=== PATIENT | male | born 1960 | race Caucasian/White ===

== ENCOUNTER → 2017-09-07 | Outpatient (CLI) | payer BC ==
[~2017-09-07] MED LIST: ASPIR 8181 MG PO; DIABETA5 MG; FAMOTIDINE20 MG PO; FISH OIL 1,0001 EAC1 PO; FISH OIL300 MG; FUROSEMIDE40 MG PO; GLUCOSAMINE CH1 EAC2 PO; GLYBURIDE5 MG PO; LEVAQUIN500 MG PO; METFORMIN HCL500 MG PO; METOPROLOL SUCC50 MG PO; MULTI-VITAMIN1 EACH PO; NIACIN500 M2 PO; NIFEDIPINE ER30 M1 PO; NITROFURANTOIN100 MG; PENICILLIN V P500 MG PO; PIOGLITAZONE HC30 MG PO; PLAVIX75 MG PO; QUINAPRIL HCL20 MG PO; SIMVASTATIN40 MG PO; SPIRONOLACTONE25 MG PO; VITAMIN C1000 MG PO; ZYRTEC10 M3 PO
--- NOTE | 2017-09-07 09:43 | Diagnostic Imaging Report ---
PROCEDURE:X-RAY ABDOMEN - KUB COMPARISON:None. INDICATIONS:CALCULUS OF KIDNEY FINDINGS: 5-6 mm calculi project over the lower pole of the right renal shadow and the interpolar left renal shadow, corresponding to calculi identified on CT abdomen and pelvis 01/20/2017. No additional calcifications project over the renal shadows or expected ureteral courses. Left hemipelvic phleboliths. Bowel gas pattern is nonobstructive. No organomegaly. Regional skeletal structures are intact. Transitional lumbosacral anatomy. CONCLUSION: Bilateral nephrolithiasis seen to better advantage on comparison CT 01/20/2017. Dictated by: Aroldo Todd M.D. on 09/07/2017 at 9:45 Electronically approved by: Aroldo Todd M.D. on 09/07/2017 at 9:45
== END ==
LOC: RAD 08:41
PROVIDERS: ATTEND Urology
DX: N20.0 Calculus of kidney (principal)
CPT/HCPCS: 74018

== ENCOUNTER → 2018-01-20 | Outpatient (CLI) | payer BC ==
--- NOTE | 2018-01-20 15:16 | Diagnostic Imaging Report ---
EXAM: Abdomen 3 Views INDICATION: \[id number] \S\1400 \S\CALCULUS OF KIDNEY COMPARISON: KUB 09/07/2017 and 05/30/2017 FINDINGS: Mild amount of stool in the colon. No dilated loops of small bowel. 3 mm calcification overlying the left renal shadow. Small calcification within the pelvis adjacent to the wall of the urinary bladder. No abnormal soft tissue masses. Mild degenerative changes in the lumbar spine and pelvis. IMPRESSION: 1. Small calcification overlying the left kidney is unchanged and suggestive of nephrolithiasis. 2. Indeterminate calcification in the left pelvis may represent stone at the distal left ureter versus phlebolith. This is unchanged. Signed by: Dr. Joanne Rene M.D. on 01/20/2018 3:13 PM
== END ==
LOC: RAD 13:35
PROVIDERS: ATTEND Urology
DX: N20.0 Calculus of kidney (principal)
CPT/HCPCS: 74018

== ENCOUNTER → 2018-11-20 | Outpatient (CLI) | payer BC ==
[~2018-11-20] MED LIST changes: +ASPIRIN81 MG PO; +ECONAZOLE NITRA15 GM TP; +FLOMAX0.4 MG PO; +FLUTICASONE PRO16 GM INH; +VICTOZA 2-0.6 MG/0.1 IJ; +VITAMIN D31000 UNI2; +VITAMIN D32000 UNIT PO; +ZYRTEC10 M3 PEG
--- NOTE | 2018-11-20 17:04 | Diagnostic Imaging Report ---
Exam: KUB - 2 views Clinical History: Renal calculi Comparison: KUB of 01/20/2018 and 09/07/2017 Findings: 5 mm left renal calculus appears slightly increased in size from 01/20/2018. Likely 3 mm right lower pole renal calculi. Nonobstructive bowel gas pattern. No free air. Mild degenerative changes of both hip joints. Phleboliths in the pelvis. Impression: Left renal calculus measures 5 mm, slightly increased from 01/20/2018. Likely 3 mm right lower pole renal calculi. Signed by: Bobbi Johnson MD on 11/20/2018 5:01 PM
== END ==
LOC: RAD 15:47
PROVIDERS: ATTEND Urology
DX: N20.0 Calculus of kidney (principal)
CPT/HCPCS: 74018

== ENCOUNTER → 2019-01-05 | Day surgery (SDC) | payer BC ==
[2019-01-02 15:09] LABS: BASOPHILS # (AUTO) 0.1 (0.0-0.1); BASOPHILS % 1.1 % (0.0-1.0); EOSINOPHILS # (AUTO) 0.6 (0.0-0.4); EOSINOPHILS % 9.6 % (0.0-6.0); HEMATOCRIT 37.9 % (38.2-49.6); HEMOGLOBIN 13.2 g/dL (14.0-18.0); LYMPHOCYTES # (AUTO) 1.9 (1.0-3.2); LYMPHOCYTES % 29.4 % (18.0-39.1); MEAN CORPUSCULAR HEMOGLOBIN 30.7 pg (28-32); MEAN CORPUSCULAR HGB CONC 34.8 g/dL (31-35); MEAN CORPUSCULAR VOLUME 88.1 fL (81-99); MONOCYTES # (AUTO) 0.6 (0.2-0.8); MONOCYTES % 8.8 % (4.4-11.3); NEUTROPHILS # (AUTO) 3.2 (2.1-6.9); NEUTROPHILS % 50.6 % (38.7-80.0); PLATELET COUNT 191 x10e3/uL (140-360); RED CELL DISTRIBUTION WIDTH 12.9 % (11.7-14.4)
--- NOTE | 2019-01-02 15:23 | Diagnostic Imaging Report ---
EXAMINATION: CHEST 2 VIEWS INDICATION: Pre-operative COMPARISON: None FINDINGS: LINES/TUBES:None LUNGS:The lungs are well-inflated. No focal consolidation or pulmonary edema. PLEURA:No pleural effusion or pneumothorax. MEDIASTINUM:The cardiomediastinal silhouette appears normal in size and shape. BONES/SOFT TISSUES:No acute osseous injury. Mild degenerative changes of the visualized spine. ABDOMEN:No free air under the diaphragm. IMPRESSION: No focal pneumonia or pulmonary edema. Signed by: Bobbi Johnson MD on 01/02/2019 3:20 PM
[~2019-01-05] MED LIST changes: +AZO STANDARD95 MG PO; +B&O 60MG R/S 60 MG SUPP PR ONE; +CEFDINIR300 MG PO; +CEFTRIAXONE SOD 1 GM/NS 50 ML 100 ML IV ONE; +DEXAMETHASONE SOD PHOS INJ 4 MG/ML VIAL ONE; +FENTANYL CITRATE/PF 100MCG/2 ML INJ ONE; +GENTAMICIN 80MG/NS 100 ML 200 ML IV ONE; +IOPAMIDOL 300MG/ML 50ML INFUS..BTL IV ONE; +LIDOCAINE HCL 2% LOCAL INJ 5 ML SDV VIAL INJ ONE; +MIDAZOLAM HCL 2 MG/2 ML VIAL ONE; +ONDANSETRON HCL INJ 2MG/ML 2ML 2 MG/ML VIAL ONE; +PROPOFOL IV EMULSION 10 MG/ML 20 ML VIAL ONE; +SEVOFLURANE INHAL SOLN 250 ML PEN BTL ONE; -ZYRTEC10 M3 PEG
--- OUTSIDE RECORDS SUMMARY | 2019-01-05 08:48 | XMS REPORT ---
Author Author [facility] Address Unknown Phone Unavailable Care Team Providers Care Research Pharmacist Name Role Phone LATOSHA AYON Unavailable Unavailable Problems This patient has no known problems. Allergies, Adverse Reactions, Alerts This patient has no known allergies or adverse reactions. Medications This patient has no known medications. Results Test Description Test Time Test Comments Text Results Atomic Results Result Comments CHEST 2 VIEWS 2019-01-02 15:19:00 [place] [id number] Patient Name: KATHERIN HURLEY MR #: [id number] : 1960 Age/Sex: 58/M Req #: [id number] Adm Physician: Ordered by: LATOSHA AYON MD Report #: [id number] Location: OR Room/Bed: Procedure: [id number] DX/CHEST 2 VIEWS Exam Date: 01/02/19 Exam Time: 1444 REPORT STATUS: Signed EXAMINATION: CHEST 2 VIEWS INDICATION: Pre-operative COMPARISON: None FINDINGS: LINES/TUBES:None LUNGS:The lungs are well-inflated. No focal consolidation or pulmonary edema. PLEURA:No pleural effusion or pneumothorax. MEDIASTINUM:The cardiomediastinal silhouette appears normal in size and shape. BONES/SOFT TISSUES:No acute osseous injury. Mild degenerative changes of the visualized spine. ABDOMEN:No free air under the diaphragm. IMPRESSION: No focal pneumonia or pulmonary edema. Signed by: Ibrahima Sabillon MD on 01/02/2019 3:20 PM Dictated By: IBRAHIMA SABILLON MD 19 Transcribed By: BURAK on 01/02/191519 COPY TO: LATOSHA AYON MD ABDOMEN-1VIEW (KUB) 2018-11-20 16:59:00 [place] [id number] Patient Name: KATHERIN HURLEY MR #: [id number] : 1960 Age/Sex: 58/M Req #: [id number] Adm Physician: Ordered by: LATOSHA AYON MD Report #: [id number] Location: [facility] Room/Bed: Procedure: [id number] DX/ABDOMEN-1VIEW (KUB) Exam Date: Exam Time: REPORT STATUS: Signed Exam: KUB - 2 views Clinical History: Renal calculi Compari son: KUB of 01/20/2018 and 09/07/2017 Findings: 5 mm left renal calculus appears slightly increased in size from 01/20/2018. Likely 3 mm right lower pole renal calculi. Nonobstructive bowel gas pattern. No free air. Mild degenerative changes of both hip joints. Phleboliths in the pelvis. Impression: Left renal calculus measures 5 mm, slightly increased from 01/20/2018. Likely 3 mm right lower pole renal calculi. Signed by: Ibrahima Sabillon MD on 11/20/2018 5:01 PM Dictated By: IBRAHIMA SABILLON MD 00 Transcribed By: Dora BROWN on 11/20/181700 COPY TO: LATOSHA AYON MD ABDOMEN-1VIEW (KUB) 2018-01-20 15:05:00 [place] [id number] Patient Name: KATHERIN HURLEY MR #: [id number] : 1960 Age/Sex: 57/M Req #: [id number] Adm Physician: Ordered by: LATOSHA AYON MD Report #: [id number] Location: [facility] Room/Bed: Procedure: [id number] DX/ABDOMEN-1VIEW (KUB) Exam Date: 01/20/18 Exam Time: 1400 REPORT STATUS: Signed EXAM: Abdomen 3 Views INDICATION: COMPARISON: KUB 09/07/2017 and 05/30/2017 FINDINGS: Mild amount of stool in the colon. No dilated loops of small bowel. 3 mm calcification overlying the left renal shadow. Small calcification within the pelvis adjacent to the wall of the urinary bladder. No abnormal soft tissue masses. Mild degenerative changes in the lumbar spine and pelvis. IMPRESSION: 1. Small calcification overlying the left kidney is unchanged and suggestive of nephrolithiasis. 2. Indeterminate calcification in the left pelvis may represent stone at the distal left ureter versus phlebolith. This is unchanged. Signed by: Dr. Maddison Wilson M.D. on 01/20/2018 3:13 PM Dictated By: MADDISON WILSON MD 12 Transcribed By: BURAK on 01/20/181512 COPY TO: LATOSHA AYON MD ABDOMEN-1VIEW (KUB) [place] [id number] Patient Name: KATHERIN HURLEY MR #: [id number] : 1960 Age/Sex: 57/M Req #: [id number] Adm Physician: Ordered by: LATOSHA AYON MD Report #: [id number] Location: [facility] Room/Bed: Procedure: [id number] DX/ABDOMEN-1VIEW (KUB) Exam Date: 09/07/17 Exam Time: 840 REPORT STATUS: Signed PROCEDURE: X-RAY ABDOMEN - KUB COMPARISON: None. INDICATIONS: CALCULUS OF KIDNEY FINDINGS: 5-6 mm calculi project over the lower pole of the right renal shadow and the interpolar left renal shadow, corresponding to calculi identified on CT abdomen and pelvis 01/20/2017. No additional calcifications project over the renal shadows or expected ureteral courses. Left hemipelvic phleboliths. Bowel gas pattern is nonobstructive. No organomegaly. Regional skeletal structures are intact. Transitional lumbosacral anatomy. CONCLUSION: Bilateral nephrolithiasis seen to better advantage on comparison CT 01/20/2017. Dictated by: Jah Badillo M.D. on 09/07/2017 at 9:45 Electronically approved by: Jah Badillo M.D. on 09/07/2017 at 9:45 Dictated By: JAH BADILLO MD Transcribed By: LARA on 09/07/1745 COPY TO: LATOSHA AYON MD CT ABDOMEN/PELVIS [place] [id number] Patient Name: KATHERIN HURLEY MR #: [id number] : 1960 Age/Sex: 56/M Req #: [id number] Adm Physician: Ordered by: LATOSHA AYON MD Report #: [id number] Location: CT Room/Bed: Procedure: [id number] CT/CT ABDOMEN/PELVIS WOW Exam Date: 01/20/17 Exam Time: 1100 REPORT STATUS: Signed PROCEDURE: CT ABDOMEN T PELVIS W/WO CONTRAST TECHNIQUE: The abdomen and pelvis were scanned utilizing a multidetector helical scanner from the diaphragm to the lesser trochanter before and after the IV administration of 100 cc of Isovue 370 and the oral administration of water. Precontrast, arterial, venous and delayed phases were obtained as part of a renal mass protocol. Coronal and sagittal multiplanar reformations were obtained. COMPARISON: None. INDICATIONS: CYST OF KIDNEY, CALCULUS OF KIDNEY FINDINGS: LOWER THORAX: Lung bases are clear. Atherosclerotic calcification of the coronary arteries.. HEPATOBILIARY: Mild hepatomegaly, measuring 16.8 cm in the right midclavicular line. Diffuse hepatic steatosis. No focal hepatic lesions. No biliary ductal dilation. Gallbladder is unremarkable. SPLEEN: No splenomegaly. PANCREAS: No focal masses or ductal dilatation. ADRENALS: No adrenal nodules. KIDNEYS/URETERS: Right: Punctate nonobstructing calculi in the interpolar region (series 4, image 48 and, series 3, image 79). 3-4 mm nonobstructing calculus in the inferior pole (series 3, image 88). No other renal or any ureteral calculi. No hydronephrosis, hydroureter, or evidence of obstruction. Several cystic lesions are noted in the right kidney: * 5.6 x 4.2 x 4.5 cm fluid density nonenhancing mostly exophytic simple cyst in the superior pole (series 4, image 104). * 6.2 x 6.2 x 6.6 cm mildly hyperdense, nonenhancing (23, 26, 26 and 26 HU on precontrast, arterial, venous and delayed phases), mostly exophytic cyst in the mid and inferior aspect (series 4, image 120). * 1.8 x 1.4 x 1.4 cm partly exophytic nonenhancing simple cyst in the inferior pole (series 4, image 56). * 1.4 x 1.5 x 1.5 cm nonenhancing simple cyst, in the posteromedial interpolar region (series 4, images 110) No solid enhancing masses. No significant perinephric stranding. Left: 6 cm nonobstructing calculus in the mid to inferior aspect (series 3, image 70). No other renal or any ureteral calculi. No hydronephrosis or obstruction. Several cystic lesions are noted in the left kidney: * 1.5 x 1.5 x 1.5 cm mildly hyperdense, nonenhancing, mostly exophytic cyst in the superior pole (series 4, image 96), likely representing a mildly proteinaceous cyst. * Adjacent 2.1 x 1.9 x 2.4 cm fluid density nonenhancing simple cyst (series 4, image 96). * 2.4 x 2.8 x 2.9 cm mildly hyperdense, mostly exophytic, nonenhancing cyst in the mid aspect (series 4, image 101), likely representing a proteinaceous cyst. * 3.3 x 3.0 x 3.2 cm mostly exophytic hyperdense nonenhancing cyst in the mid to inferior aspect, consistent with a hemorrhagic cyst. * 1.5 x 1.6 x 1.8 cm fluid density partially exophytic, nonenhancing simple cyst in the inferior pole (series 4, image 116). * Subcentimeter hypodensities in the interpolar region (series 4, image 104, and inferior pole (series 4, image 116), which are too small to characterize. No solid enhancing lesions. No significant perinephric stranding. There is good contrast opacification of bilateral renal collecting system, renal pelves, and mid and distal portions of both ureters. No filling defects, strictures, or extrinsic compressions in the opacified portions. PELVIC ORGANS/BLADDER: Bladder shows no focal lesion or wall thickening. PERITONEUM / RETROPERITONEUM: No free air or fluid. LYMPH NODES: Mildly enlarged gastrohepatic ligament (series 3, images 36), and driss hepatis (series 3, image 42) lymph nodes, which measure approximately 1.3 and 1.5 cm in short axis, respectively. No other adenopathy. VESSELS: Celiac trunk, superior and inferior mesenteric, and bilateral renal arteries are patent. Portal, superior mesenteric, and splenic veins are patent. Mild atherosclerotic calcification of the abdominal aorta and iliac vessels. GI TRACT: Visualized bowel shows no dilation or obstruction. BONES AND SOFT TISSUES: No acute bony abnormalities. Degenerative disc changes in the lower thoracic and lumbosacral spine. IMPRESSION: 1. Bilateral nonobstructing renal calculi, as described. No ureteral or bladder calculi, hydronephrosis, or obstruction. 2. Bilateral simple and proteinaceous cysts. A hemorrhagic cyst is noted in the mid to inferior aspect of the left kidney. 3. No solid enhancing lesions. No filling defects in the opacified portions of the genitourinary tract. 4. Mild hepatomegaly with diffuse fatty infiltration. 5. Mildly enlarged gastrohepatic ligament and driss hepatis nodes, which are nonspecific and may be reactive. No other adenopathy. Carisa Taylor M.D. Dictated by: Carisa Taylor M.D. on 01/20/2017 at 14:17 Electronically approved by: Carisa Taylor M.D. on 01/20/2017 at 19:34 Dictated By: CARISA TAYLOR MD 33 Transcribed By: LARA on 01/20/171933 COPY TO: LATOSHA AYON MD
--- OUTSIDE RECORDS SUMMARY | 2019-01-05 08:48 | XMS REPORT | Clinical Summary ---
Author Author [facility] Organization [facility] Address Unknown Phone Unavailable Care Team Providers Care Slider Assembler Name Role Phone Kobe Díaz MD PCP Allergies No Known Allergies Medications End Date Status Medication Sig Dispensed Refills Start Date Active NIFEdipine XL (PROCARDIA TAKE ONE 2 XL) 90 MG 24 hr tablet TABLET PO D 8 ON EMPTY STOMACH Active quinapril (ACCUPRIL) 40 Take 40 mg by 3 MG tablet mouth 2 (two) 9 times a day. Active spironolactone Take 50 mg by 3 (ALDACTONE) 50 MG tablet mouth daily. 9 Active furosemide (LASIX) 40 mg Take 40 mg by 2 tablet mouth daily. 9 Active simvastatin (ZOCOR) 40 MG Take 40 mg by 3 tablet mouth every 9 evening. Active metFORMIN (GLUCOPHAGE) Take 1,000 mg 2 1,000 mg tablet by mouth 2 9 (two) times a day. Active metoprolol succinate XL Take 100 mg 0 (TOPROL-XL) 100 mg 24 hr by mouth tablet daily. Active tamsulosin (FLOMAX) 0.4 Take 0.4 mg 0 mg capsule by mouth every evening. Active aspirin (ECOTRIN) 81 MG Take 81 mg by 0 enteric coated tablet mouth daily. Active omega 2-dyf-rao-fish oil Take by 0 (FISH OIL) 1,000 mg (120 mouth. mg-180 mg) capsule Active therapeutic multivitamin Take 1 tablet 0 (THERAGRAN) tablet by mouth daily. Active glucosamine sulfate Take by 0 (GLUCOSAMINE ORAL) mouth. Active cholecalciferol, vitamin Take by 0 D3, (VITAMIN D3 ORAL) mouth. Active ascorbic acid, vitamin C, Take 1,000 mg 0 (vitamin C) 1000 MG by mouth tablet daily. Active cetirizine (ZyrTEC) 10 MG Take 10 mg by 0 tablet mouth nightly. Active famotidine (PEPCID) 20 MG Take 20 mg by 0 tablet mouth 2 (two) times a day. Active acetaminophen (TYLENOL) Take 1,300 mg 0 650 MG 8 hr tablet by mouth every 8 (eight) hours as needed for mild pain. Active VICTOZA 3-HOWARD 0.6 mg/0.1 INJECT 1.8 MG 3 mL (18 mg/3 mL) pen SUBCUTANEOUS 9 injector DAILY 08/18/2018 Discontinued pioglitazone (ACTOS) 30 Take 30 mg by 3 MG tablet mouth daily. 8 07/03/2018 dexamethasone (TAPERDEX) Use as 21 tablet 0 1.5 mg (21 tabs) directed 9 tablets,dose pack 08/18/2018 Discontinued diclofenac (VOLTAREN) 75 Take 1 tablet 60 tablet 2 MG EC tablet (75 mg total) 9 by mouth 2 (two) times a day for 30 days. Active Problems Not on file Encounters Care Team Description Date Type Specialty Ursula Marley PA-C Spondylolisthesis at L1-L2 level (Primary Dx); Bilateral stenosis of lateral recess of lumbar spine; Lumbosacral radiculitis; Acute right-sided low back pain with right-sided sciatica 08/25/2018 Office Visit Orthopedic Surgery Shade Solis MD Spondylolisthesis at L1-L2 level; Lumbosacral radiculitis; Degeneration of lumbar intervertebral disc 08/18/2018 Hospital Radiology Encounter Shade Solis MD Pre-op testing (Primary Dx) 08/18/2018 Pre-Admit Pre-Admission Testing Testing Appointment Km Sanchez Spondylolisthesis at L1-L2 level (Primary Dx); Lumbosacral radiculitis; Degeneration of lumbar intervertebral disc 08/16/2018 Orders Only Orthopedic Surgery Natalya Vera MA Acute right-sided low back pain with right-sided sciatica (Primary Dx); Right leg weakness; Lumbar radiculopathy 08/14/2018 Orders Only Orthopedic Surgery Shade Solis MD Acute right-sided low back pain with right-sided sciatica; Right leg weakness; Lumbar radiculopathy 08/07/2018 Hospital Radiology Encounter Ursula Marley PA-C Acute right-sided low back pain with right-sided sciatica (Primary Dx); Right leg weakness; Lumbar radiculopathy 07/24/2018 Office Visit Orthopedic Surgery Ashley Herrera 06/28/2018 Telephone Physical Therapy Ursula Marley PA-C Lumbar spine pain (Primary Dx); Degeneration of lumbar intervertebral disc; Lumbosacral radiculitis 06/27/2018 Office Visit Orthopedic Surgery after 01/04/2018 Family History Medical History Relation Name Comments Diabetes Brother Heart disease Brother Hypertension Brother Hypertension Father Prostate cancer Father Brain cancer Mother Diabetes Mother Hypertension Mother Relation Name Status Comments Brother Father Mother Social History Date Tobacco Use Types Packs/Day Years Used Quit: 2003 Former Smoker Cigarettes 2 Smokeless Tobacco: Never Used Tobacco Cessation: Counseling Given: No Drinks/Week oz/Week Comments Alcohol Use 1 Standard drinks or equivalent 1.0 Yes Sex Assigned at Date Recorded Not on file Industry Job Start Date Occupation Not on file Not on file Not on file Travel End Travel History Travel Start No recent travel history available. Last Filed Vital Signs Reading Time Taken Comments Vital Sign 162/71 08/25/2018 11:21 AM CDT Blood Pressure 109 08/25/2018 11:21 AM CDT Pulse 36.6 C (97.8 F) 08/18/2018 2:42 PM CDT Temperature - - Respiratory Rate 97% 08/18/2018 2:42 PM CDT Oxygen Saturation - - Inhaled Oxygen Concentration 169 kg (373 lb 1 oz) 08/18/2018 2:42 PM CDT Weight 181.6 cm (5' 11.5") 08/18/2018 2:42 PM CDT Height 51.31 08/18/2018 2:42 PM CDT Body Mass Index Plan of Treatment Health Maintenance Due Date Last Done Comments COLONOSCOPY SCREENING 2009 SHINGLES VACCINES (#1) 2009 INFLUENZA VACCINE 11/09/2018 Procedures Comments Procedure Name Priority Date/Time Associated Diagnosis MRI LUMBAR SPINE WO Routine 08/18/2018 Spondylolisthesis at CONTRAST 5:05 PM CDT L1-L2 level Lumbosacral radiculitis Degeneration of lumbar intervertebral disc ECG PRE/POST OP Routine 08/18/2018 Pre-op testing 3:44 PM CDT ESTIMATED GFR Routine 08/18/2018 3:25 PM CDT HEMOGLOBIN A1C Routine 08/18/2018 Pre-op testing 3:25 PM CDT BASIC METABOLIC PANEL Routine 08/18/2018 Pre-op testing 3:25 PM CDT XR LUMBAR SPINE 2 OR 3 VW Routine 06/27/2018 Lumbar spine pain 11:44 AM CDT after 01/04/2018 Results * MRI Lumbar Spine Wo Contrast (08/18/2018 5:05 PM CDT) Specimen Narrative Performed At [facility] EXAMINATION:MRI LUMBAR SPINE WO CONTRAST CLINICAL HISTORY:M43.16 Spondylolisthesislumbar region, M54.17 Radiculopathylumbosacral region, LUMBAR MRI WITHOUT CONTRAST - BACK PAIN COMPARISON:June 27, 2018 FINDINGS: Lowermost functional disc space is assumed to be L5-S1. Mild retrolisthesis at L3-4. Multilevel disc space narrowing and endplate degenerative changes. No suspicious focal bone marrow lesions Visualized spinal cord is normal in appearance. L1-2: No canal or foraminal narrowing. L2-3: Posterior disc bulge. No canal or foraminal narrowing. L3-4: Posterior disc bulge, bilateral facet arthropathy, ligament flavum thickening and epidural lipomatosis causes severe narrowing of the canal and mild left and moderate right foraminal narrowing. L4-5: Posterior disc bulge, superimposed posterior central disc protrusion, bilateral facet arthropathy and ligament flavum thickening causes severe narrowing of the canal and mild narrowing of the foramina. L5-S1: Posterior disc bulge, superimposed posterior disc protrusion, facet arthropathy and ligamentum flavum thickening causes moderate foraminal narrowing on the left. There is moderate circumferential narrowing of the subarachnoid space mostly due to epidural lipomatosis. IMPRESSION: Multilevel degenerative changes worst at L3-4 and L4-5. [facility]-[id number] Procedure Note Hm Interface, Radiology Results Incoming - 08/18/2018 5:21 PM CDT EXAMINATION: MRI LUMBAR SPINE WO CONTRAST CLINICAL HISTORY: M43.16 Spondylolisthesis lumbar region, M54.17 Radiculopathy lumbosacral region, LUMBAR MRI WITHOUT CONTRAST - BACK PAIN COMPARISON: June 27, 2018 FINDINGS: Lowermost functional disc space is assumed to be L5-S1. Mild retrolisthesis at L3-4. Multilevel disc space narrowing and endplate degenerative changes. No suspicious focal bone marrow lesions Visualized spinal cord is normal in appearance. L1-2: No canal or foraminal narrowing. L2-3: Posterior disc bulge. No canal or foraminal narrowing. L3-4: Posterior disc bulge, bilateral facet arthropathy, ligament flavum thickening and epidural lipomatosis causes severe narrowing of the canal and mild left and moderate right foraminal narrowing. L4-5: Posterior disc bulge, superimposed posterior central disc protrusion, bilateral facet arthropathy and ligament flavum thickening causes severe narrowing of the canal and mild narrowing of the foramina. L5-S1: Posterior disc bulge, superimposed posterior disc protrusion, facet arthropathy and ligamentum flavum thickening causes moderate foraminal narrowing on the left. There is moderate circumferential narrowing of the subarachnoid space mostly due to epidural lipomatosis. IMPRESSION: Multilevel degenerative changes worst at L3-4 and L4-5. [facility]-[id number] Performing Organization Address City/[facility] Hospital[facility] Phone Number [facility] [address] [place] [address] * ECG Pre/Post Op (08/18/2018 3:44 PM CDT) Pathologist [facility] Ventricular 77 [facility] MUSE rate Atrial rate 77 [facility] MO interval 202 [facility] QRSD interval 106 [facility] QT interval 396 [facility] QTC interval 448 [facility] P axis 1 42 [facility] QRS axis 1 29 [facility] T wave axis 39 [facility] EKG impression Normal sinus rhythm-Normal [facility] MUSE ECG-No previous ECGs available- Specimen Narrative Performed At Performing Organization Address [facility] Hospitalcout Phone Number [facility] [address] [place] [address] * Estimated GFR (08/18/2018 3:25 PM CDT) Pathologist [facility] Estimated GFR >=90 mL/min/1.73 m2 [place] Comment: [facility] rpretation G1 >=90 Normal or high G2 60-89Mildly decreased [id number] Mildly to moderately decreased [id number] Moderately to severely decreased G4 15-29Severely decreased G5 <15Kidney failure The eGFR was calculated using the Chronic Kidney Disease Epidemiology Collaboration (CKD-EPI) equation. Interpretation is based on recommendations of the National Kidney Foundation-Kidney Disease Outcomes Quality Initiative (NKF-KDOQI) published in 2014. Specimen Plasma specimen Performing Organization Address City/State/Zipcode Phone Number [facility] [place] [address] PATHOLOGY AND GENOMIC MEDICINE [address] * Hemoglobin A1c (08/18/2018 3:25 PM CDT) Hemoglobin A1C 6.6 (H) 4.0 - 5.6 % [place] Comment: [facility] HbA1c cutoffs for diagnosing HOSPITAL diabetes: 4.0% - 5.6%=normal 5.7% - 6.4%=increased risk for diabetes (prediabetes) >=6.5%=diabetes Goals for glycemic control (ADA 2016) < 7.0%Target for non adults with diabetes. More or less stringent targets may be appropriate for individual patients. <7.5% Target for Children and adolescents with type 1 diabetes. Specimen Blood Performing Organization Address [facility] Hospitalcode Phone Number [facility] [place] [address] PATHOLOGY AND [facility] MEDICINE [address] * Basic metabolic panel (08/18/2018 3:25 PM CDT) Sodium 142 135 - 148 mEq/L [facility] Potassium 4.0 3.5 - 5.0 mEq/L [facility] Chloride 100 98 - 112 mEq/L [facility] CO2 27 24 - 31 mEq/L [facility] Anion gap 15@ANIO 7 - 15 mEq/L [facility] BUN 18 6 - 20 mg/dL [facility] Creatinine 0.87 0.70 - 1.20 mg/dL [facility] Glucose 113 (H) 65 - 99 mg/dL [facility] Calcium 9.1 8.3 - 10.2 mg/dL [facility] Specimen Plasma specimen Performing Organization Address City/[facility] Phone Number [facility] DEPARTMENT [address] [address] PATHOLOGY AND GENOMIC MEDICINE [place] [facility] [address] [place] [address] HOSPITAL * XR Lumbar Spine 2 Or 3 Vw (06/27/2018 11:44 AM CDT) Specimen Narrative Performed At [facility] 2 view AP lateral lumbar x-rays were taken in the office today.The x-rays show free-flowing anterior ossified formation across the thoracolumbar junction and some osteophytes present at L4-5 with narrowing of the disc space at L4-5 and L5-S1.Spondylosis in the facets seen at L4-5 with posterior osteophyte formation at the L4-5 segment as well. Performing Organization Address City/State/Zipcode Phone Number [facility] [address] [place] [address] after 01/04/2018 Insurance Type Payer Benefit Subscriber ID Effective Phone Address Plan / Dates Group PPO BCBS BCBS xxxxxxxxxxxx [id number] CHOICE resent PPO/JUAN SALAMANCA PPO Advance Directives For more information, please contact: [phone] Patient Net Application Architect Explanation Type Date Recorded Advance Directives, Living Will and Medical Power of Predatory Game Hunter
--- NOTE | 2019-01-05 10:44 | Diagnostic Imaging Report ---
Abdomen, 1 view. History: Renal calculi. Comparison: 11/20/2018. Findings: 4 to 5 mm calcifications are projected over both kidneys, unchanged in position. Air is scattered throughout nondilated small and large bowel. There are no masses. The osseous structures are intact. IMPRESSION: Non-specific bowel gas pattern. Small bilateral renal calculi without significant change. Signed by: Zachary Lara on 01/05/2019 10:41 AM
[2019-01-05 13:20] VITALS: BP 118/65
--- NOTE | 2019-02-12 00:31 | Operative Report ---
DATE OF PROCEDURE: 01/05/2019 SURGEON: Hilario Wilson MD PREOPERATIVE DIAGNOSES: 1. Nephrolithiasis. 2. Urinary tract infections. POSTOPERATIVE DIAGNOSES: 1. Nephrolithiasis. 2. Urinary tract infections. 3. Left ureteral stricture. 4. Left hydronephrosis due to stricture. 5. Urethral stricture disease. OPERATION PERFORMED: 1. Cystourethroscopy with calibration and dilation of urethral stricture (separate procedure performed for the diagnosis of stricture). 2. Cystourethroscopy with bilateral ureteral catheterization and retrograde ureteropyelography (separate procedure performed for the urinary tract infections). 3. Interpretation of retrograde ureteropyelography. 4. Supervision of fluoroscopy, no radiologist present. 5. Left ureteroscopy with dilation of ureteral stricture (separate procedure performed for the diagnosis of stricture). 6. Radiological services for supervision and interpretation of stricture dilation. 7. Cystourethroscopy with insertion of left indwelling ureteral stent (separate procedure performed to relieve the hydronephrosis). ANESTHESIA: General. COMPLICATIONS: None. CLINICAL SUMMARY: Gm Meraz is a morbidly obese 58-year-old man with nephrolithiasis. He is brought for the above procedures. He is too large to undergo ESWL. He is aware of the risks of bleeding, infection, injury to adjacent structures, need for additional procedures, and elected to proceed. OPERATIVE PROCEDURE IN DETAIL: Informed consent was verified. Gm Meraz was properly identified, taken to the operating room, and placed on the cystoscopy table in supine position. Anesthesia was uneventfully begun. The patient was then carefully and gently repositioned in dorsal lithotomy position with all pressure points well padded. His genitalia were prepared and draped in usual sterile fashion. A 22.5-[place] cystoscope sheath with visual obturator in place was atraumatically inserted into the patient's urethral meatus that was on the urethra, which exhibited panurethral stricture disease. We gently dilated across virtually the entire urethra until we reached a normal sphincteric region. We entered the patient's prostate bed, which was relatively fixed. We went over a very high median bar and into the patient's bladder, where panendoscopy revealed trabeculations, but no suspicious lesions. There were no stones and there were no tumors. A ureteral catheter was used to cannulate each ureter and retrograde pyelograms performed. A guidewire was then placed in the left ureter and guided to the level of the patient's kidney. We then placed the flexible ureteroscope over the guidewire and we encountered a ureteral stricture. We dilated across the stricture with the aid of the ureteroscope and the guidewire. We then were able to reach the kidney. There was significant resistance in the ureter, so we did not force the issue and rather left guidewire in place and removed the ureteroscope. With cystoscopic and fluoroscopic guidance, a left-sided indwelling ureteral stent was then placed, coiled the patient's kidneys as well as the patient's bladder. The retaining suture was cut short. Interpretation of retrograde ureteropyelography contrast was instilled in retrograde fashion bilaterally. On the right-hand side, we could not visualize the punctate stone noted on CT. There was no hydronephrosis. Unobstructed drainage was observed fluoroscopically. On the left hand side, there was some narrowing that was consistent with the ureteral stricture that we noted endoscopically. The 6 mm stone in the left mid pole calyx could be seen as a filling defect, but it was not addressed during this case. The stent was in good position and coiled the patient's kidneys as well as the patient's bladder at the end of the case. The patient's bladder was drained and cystoscope was withdrawn. Belladonna and opium suppository were placed revealing a 30 g prostate, that is smooth, non-fluctuant without any nodules. The patient was then uneventfully reversed from anesthesia and taken to recovery room in stable condition. There were no complications to the procedure. He tolerated the procedure well. Plans will be to return to the operating room after a month in order to remove his stent, perform left ureteroscopy, and address the patient's stone. Hilario MD [place]/[facility] /[id number] cc: Kobe Díaz MD
== END | disposition home or self-care (01) ==
LOC: OR 08:45
PROVIDERS: ATTEND Urology
DX: N20.0 Calculus of kidney (principal); N39.0 Urinary tract infection, site not specified; N13.1 Hydronephrosis with ureteral stricture, not elsewhere classified; N32.89 Other specified disorders of bladder; N35.916 Unspecified urethral stricture, male, overlapping sites; E66.9 Obesity, unspecified; I10 Essential (primary) hypertension; R06.81 Apnea, not elsewhere classified; K21.9 Gastro-esophageal reflux disease without esophagitis; D11.9 Benign neoplasm of major salivary gland, unspecified; Z01.810 Encounter for preprocedural cardiovascular examination; Z01.812 Encounter for preprocedural laboratory examination; Z01.818 Encounter for other preprocedural examination; Z79.82 Long term (current) use of aspirin; Z79.84 Long term (current) use of oral hypoglycemic drugs; Z87.891 Personal history of nicotine dependence
CPT/HCPCS: 36415; 52332; 52344; 71046; 74018; 74420; 85025; 93005; C1758 ×2; C1766; C2617; J0696; J1100; J1580; J2001; J2250; J2405; J2704; J3010; Q9967

== ENCOUNTER 2019-01-31 19:34 | Emergency (ER) | payer BC ==
[~2019-01-31] VITALS: Ht 180.3 cm; Wt 174.2 kg
[~2019-01-31 19:34] MED LIST changes: -AZO STANDARD95 MG PO; -B&O 60MG R/S 60 MG SUPP PR ONE; -CEFDINIR300 MG PO; -CEFTRIAXONE SOD 1 GM/NS 50 ML 100 ML IV ONE; -DEXAMETHASONE SOD PHOS INJ 4 MG/ML VIAL ONE; -FENTANYL CITRATE/PF 100MCG/2 ML INJ ONE; -GENTAMICIN 80MG/NS 100 ML 200 ML IV ONE; -IOPAMIDOL 300MG/ML 50ML INFUS..BTL IV ONE; -LIDOCAINE HCL 2% LOCAL INJ 5 ML SDV VIAL INJ ONE; -MIDAZOLAM HCL 2 MG/2 ML VIAL ONE; -ONDANSETRON HCL INJ 2MG/ML 2ML 2 MG/ML VIAL ONE; -PROPOFOL IV EMULSION 10 MG/ML 20 ML VIAL ONE; -SEVOFLURANE INHAL SOLN 250 ML PEN BTL ONE
[2019-01-31] MEDS ORDERED: CEFTRIAXONE SOD 1 GM/NS 50 ML 50 ML IV ONE (20:45)
[2019-01-31] MEDS ORDERED: CEFTRIAXONE SOD 1 GM VIAL IV ONE (20:45)
[2019-01-31 21:11] LABS: BILIRUBIN,URINE NEGATIVE (NEGATIVE); CLARITY,URINE SL CLOUDY (CLEAR); COLOR,URINE ORANGE (YELLOW); KETONES,URINE NEGATIVE (NEGATIVE); LEUKOCYTE ESTERASE ,URINE LARGE (NEGATIVE); NITRITE,URINE POSITIVE (NEGATIVE); PROTEIN,URINE DIPSTICK 2+ (NEGATIVE); URINE UROBILINOGEN 2 mg/dL (0.2 - 1)
[2019-01-31 21:22] LABS: BACTERIA,URINE MANY /HPF; EPITHELIAL CELLS,URINE FEW /LPF
[2019-01-31] MEDS ORDERED: CEFTRIAXONE SOD 1 GM VIAL ONE (21:53)
[2019-01-31] MEDS ORDERED: CEFTRIAXONE SOD 1 GM VIAL IM ONE (22:00)
[2019-02-06] MEDS ORDERED: CEFDINIR300 MG PO (10:53)
[2019-02-06] MEDS ORDERED: AZO STANDARD95 MG PO (10:53)
== END 2019-01-31 22:25 | disposition home or self-care (01) ==
LOC: ER 19:34
DX: R30.0 Dysuria (principal); R10.9 Unspecified abdominal pain; N10 Acute pyelonephritis; N12 Tubulo-interstitial nephritis, not specified as acute or chronic; N30.91 Cystitis, unspecified with hematuria; I10 Essential (primary) hypertension; E11.9 Type 2 diabetes mellitus without complications; N28.9 Disorder of kidney and ureter, unspecified; E78.5 Hyperlipidemia, unspecified
CPT/HCPCS: 36415; 81001; 87086; 87186; 99283; J0696

== ENCOUNTER 2019-08-16 18:39 | Emergency (ER) | payer BC ==
[~2019-08-16] VITALS: Ht 180.3 cm; Wt 174.2 kg
[~2019-08-16 18:39] MED LIST changes: +AZO STANDARD95 MG PO; +CEFDINIR300 MG PO
--- OUTSIDE RECORDS SUMMARY | 2019-08-16 18:42 | XMS REPORT | Clinical Summary ---
Author Author [facility] Organization [facility] Address Unknown Phone Unavailable Care Team Providers [employer] Sales Representative Name Role Phone Kobe Díaz MD PCP Allergies No Known Allergies Medications End Date Status Medication Sig Dispensed Refills Start Date Active NIFEdipine XL (PROCARDIA TAKE ONE 2 04/06 XL) 90 MG 24 hr tablet TABLET PO D 8 ON EMPTY STOMACH Active quinapril (ACCUPRIL) 40 Take 40 mg by 3 MG tablet mouth 2 (two) 9 times a day. Active spironolactone Take 50 mg by 3 (ALDACTONE) 50 MG tablet mouth daily. 9 Active furosemide (LASIX) 40 mg Take 40 mg by 2 05/21 tablet mouth daily. 9 Active simvastatin (ZOCOR) 40 MG Take 40 mg by 3 tablet mouth every 9 evening. Active metFORMIN (GLUCOPHAGE) Take 1,000 mg 2 04/28/ 01 1,000 mg tablet by mouth 2 9 (two) times a day. Active metoprolol succinate XL Take 100 mg 0 (TOPROL-XL) 100 mg 24 hr by mouth tablet daily. Active tamsulosin (FLOMAX) 0.4 Take 0.4 mg 0 mg capsule by mouth every evening. Active aspirin (ECOTRIN) 81 MG Take 81 mg by 0 enteric coated tablet mouth daily. Active omega 4-jdi-hyb-fish oil Take by 0 (FISH OIL) 1,000 [...] 3-HOWARD 0.6 mg/0.1 INJECT 1.8 MG 3 08/02 mL (18 mg/3 mL) pen SUBCUTANEOUS 9 injector DAILY 08/18/2018 Discontinued pioglitazone (ACTOS) 30 Take 30 mg by 3 MG tablet mouth daily. 8 08/18/2018 Discontinued diclofenac (VOLTAREN) 75 Take 1 tablet 60 tablet 2 MG EC tablet (75 mg total) 9 by mouth 2 (two) times a day for 30 days. Active Problems Not on file Encounters Care Team Description Date Type Specialty Ursula Marley PA-C 07/29/2019 Refill Orthopedic Surgery Ursula Marley PA-C Spondylolisthesis at L1-L2 level (Primar y Dx); Bilateral stenosis of lateral recess of lumbar spine; Lumbosacral radiculitis; Acute right-sided low back pain with right-sided sciatica 08/25/2018 Office Visit Orthopedic Surgery Shade Solis MD Spondylolisthesis at L1-L2 level; Lumbosacral radiculitis; Degeneration of lumbar intervertebral disc 08/18/2018 Hospital Radiology Encounter Shade Solis MD Pre-op testing (Primary Dx) 08/18/2018 Pre-Admit Pre-Admission Testi ng Testing Appointment Km Sanchez Spondylolisthesis at L1-L2 level (Primar y Dx); Lumbosacral radiculitis; Degeneration of lumbar intervertebral disc 08/16/2018 Orders Only Orthopedic Surgery after 08/15/2018 Family History Medical History Relation Name Comments Diabetes Brother Heart disease Brother Hypertension Brother Hypertension Father Prostate cancer Father Brain cancer Mother Diabetes Mother Hypertension Mother Relation Name Status Comments Brother Father Mother Social History Date Tobacco Use Types Packs/Day Years Used Quit: 2003 Former Smoker Cigarettes 2 25 Smokeless Tobacco: Never Used Tobacco Cessation: Counseling [...] Health Maintenance Due Date Last Done Comments DIABETIC RETINAL EYE EXAM 1959 DIABETIC FOOT EXAM 1969 URINE MICROALBUMIN 1969 COLONOSCOPY SCREENING 2009 SHINGLES VACCINES (#1) 2009 INFLUENZA VACCINE 11/10/2019 Procedures Comments Procedure Name Priority Date/Time Associated Diag nosis MRI LUMBAR SPINE WO Routine 08/18/2018 Spondyloli sthesis at CONTRAST 5:05 PM CDT L1-L2 level Lumbosacral radiculitis Degeneration of lumbar intervertebral disc ECG PRE/POST OP Routine 08/18/2018 Pre-op testing 3:44 PM CDT ESTIMATED GFR Routine 08/18/2018 3:25 PM CDT HEMOGLOBIN A1C Routine 08/18/2018 Pre-op testing 3:25 PM CDT BASIC METABOLIC PANEL Routine 08/18/2018 Pre-op t esting 3:25 PM CDT after 08/15/2018 Results * MRI Lumbar Spine Wo Contrast (08/18/2018 5:05 PM CDT) Specimen Narrative Performed At [facility] EXAMINATION: MRI LUMBAR SPINE WO CONT RAST CLINICAL HISTORY: M43.16 Spondylolist hesis lumbar region, M54.17 Radiculopathy lumbosacral region, LUM BAR MRI WITHOUT CONTRAST - BACK PAIN COMPARISON: June 27, 2018 FINDINGS: Lowermost functional disc space is assu med to be L5-S1. Mild retrolisthesis at L3-4. Multilevel disc space narrowing and end plate degenerative changes. No suspicious focal bone marrow lesions Visualized spinal cord is normal in galileo earance. L1-2: No canal or foraminal narrowing. L2-3: Posterior disc bulge. No canal or foraminal narrowing. L3-4: Posterior disc bulge, bilateral f acet arthropathy, ligament flavum thickening and epidural lipomatosis cau ses severe narrowing of the canal and mild left and moderate right foraminal narrowing. L4-5: Posterior disc bulge, superimpose d posterior central disc protrusion, bilateral facet arthropathy and ligamen t flavum thickening causes severe narrowing of the canal and mild narrowi ng of the foramina. L5-S1: Posterior disc bulge, superimpos ed posterior disc protrusion, facet arthropathy and ligamentum flavum thick ening causes moderate foraminal narrowing on the left. There is moderate circumfe rential narrowing of the subarachnoid space mostly due to epidural lipomatosis. IMPRESSION: Multilevel degenerative changes worst a t L3-4 and L4-5. [facility]-[id number] Procedure Note Hm Interface, Radiology Results Incoming [...] degenerative changes worst at L3-4 and L4-5. [facility]-[id number] Performing Organization Address [facility] Ph one Number [facility] [address] [place] [address] * ECG Pre/Post Op (08/18/2018 3:44 PM CDT) Pathologist [facility] Ventricular 77 [facility] MUSE rate Atrial rate 77 [facility] MUSE ME interval 202 [facility] MUSE QRSD interval 106 [facility]USE QT interval 396 [facility] MUSE QTC interval 448 [facility] MUSE P axis 1 42 [facility] QRS axis 1 29 [facility] MUSE T wave axis 39 [facility] EKG impression Normal sinus rhythm-Normal [facility] MUSE ECG-No previous ECGs available- Specimen Narrative Performed At This result has an attachment that is n ot available. Performing Organization Address [facility] one Number [facility] MUSE [address] [place] [address] * Estimated GFR (08/18/2018 3:25 PM CDT) [facility] Estimated GFR >=90 mL/min/1.73 m2 [facility] Comment: [facility] [employer] [facility] HOSPITAL Interpretation G1 >=90 Normal or high G2 60-89 Mildly decreased G3a 45-59 Mildly to moderately decreased G3b 30-44 Moderately to severely decreased G4 15-29 Severely decreased G5 <15 Kidney failure The eGFR was calculated using the Chronic Kidney Disease Epidemiology Collaboration (CKD-EPI) equation. Interpretation is based on recommendations of the National Kidney Foundation-Kidney Disease Outcomes Quality Initiative (NKF-KDOQI) published in 2014. Specimen Plasma specimen Performing Organization Address [facility] one Number [facility] DEPARTMENT OF [address] [place] [address] PATHOLOGY AND GENOMIC MEDICINE [facility] [address] [place] [address] HOSPITAL * Hemoglobin A1c (08/18/2018 3:25 PM CDT) Pathologist [facility] Hemoglobin A1C 6.6 (H) 4.0 - 5.6 % [facility] Comment: [facility] HbA1c cutoffs for diagnosing HOSPITAL diabetes: 4.0% - 5.6% = normal 5.7% - 6.4% = increased risk for diabetes (prediabetes) >=6.5% = diabetes Goals for glycemic control (ADA 2016) < 7.0% Target for non adults with diabetes. More or less stringent targets may be appropriate for individual patients. <7.5% Target for Children and adolescents with type 1 diabetes. Specimen Blood Performing Organization Address [facility] Ph one Number [facility] DEPARTMENT OF [address] [place] [address] PATHOLOGY [address] GENOMIC MEDICINE [address] * Basic metabolic panel (08/18/2018 3:25 PM CDT) Sodium 142 135 - 148 mEq/L [facility] Potassium 4.0 3.5 - 5.0 mEq/L [facility] Chloride 100 98 - 112 mEq/L [facility] CO2 27 24 - 31 mEq/L [facility] Anion gap 15@ANIO 7 - 15 mEq/L [facility] BUN 18 6 - 20 mg/dL [facility] Creatinine 0.87 0.70 - 1.20 mg/dL [facility] Glucose 113 (H) 65 - 99 mg/dL [facility] Calcium 9.1 8.3 - 10.2 mg/dL [facility] Specimen Plasma specimen Performing Organization Address [facility] Ph one Number [facility] DEPARTMENT OF [address] [place] [address] PATHOLOGY AND GENOMIC MEDICINE [address] after 08/15/2018 Insurance Type Payer Benefit Subscriber ID Effective Phone Address Plan / Dates Group PPO BCBS BCBS xxxxxxxxxxxx [id number] CHOICE resent PPO/JUAN Skinner EMPL PPO Advance Directives For more information, please contact: [phone] Patient Care Associate Explanation Type Date Recorded Advance Directives, Living Will and Medical Power of An/Ssn 2 4 Operator
[2019-08-16] MEDS ORDERED: KETOROLAC TROMETHAMINE 60 MG/2 ML VIAL IM ONE (19:30)
[2019-08-16] MEDS ORDERED: ONDANSETRON HCL 4 MG ORAL DISINTEGRATING TAB ONE (19:43)
[2019-08-16] MEDS ORDERED: ONDANSETRON HCL 4 MG ORAL DISINTEGRATING TAB PO ONE (19:45)
--- NOTE | 2019-08-16 20:17 | Diagnostic Imaging Report ---
CT Abdomen and Pelvis without contrast INDICATION: ^STONE PROTOCOL, RIGHT FLANK PAIN ^[id number] ^1957 ^Y TECHNIQUE: Thin collimation axial images obtained from the diaphragm to the level of the pubic symphysis without nonionic intravenous contrast. Dose reduction techniques used: Automated exposure control, adjustment of the mAs and/or kVp according to patient size, standardized low-dose protocol, and/or iterative reconstruction technique. RADIATION DOSE: Total DLP: 924.55 mGy*cm Estimated effective dose: (DLP x 0.015 x size factor) mSv CTDIvol has been reviewed. It is below the limits set by the Radiation Protocol Committee (RPC). COMPARISON: No relevant priors. ABDOMEN FINDINGS: Lung Bases: Heavy calcifications of the LAD coronary artery. Bibasilar subsegmental atelectasis. No infiltrates. Liver: Decreased attenuation suggestive of steatosis. No mass. Gallbladder: Present and appears normal. No ductal dilatation. Pancreas: Normal attenuation without mass. Spleen: Normal size without mass. Adrenal Glands: No evidence for mass. Kidneys: Right: Multiple renal cortical lesions of varying sizes and attenuations. An exophytic lower pole lesion measures 6.7 x 6.7 cm with central attenuation of 16 Hounsfield units but with a uniform peripheral rim of hyperattenuation. A hyperattenuating lesion in the upper pole measures 8 mm and may represent a proteinaceous or hemorrhagic cyst. An upper pole cyst measures 5.3 cm and 3 Hounsfield units. There are 2 calculi in a lower pole calyx each measure approximately 2 mm. No hydronephrosis Left: Multiple cysts and cortical lesions of varying sizes and attenuations. The largest is in the lateral cortex and measures 3.4 cm and 47 Hounsfield units. There is a punctate catheter is in the lower pole. No hydronephrosis. Lymph Nodes: No lymphadenopathy. Aorta: Normal in diameter with scattered calcifications. PELVIS FINDINGS: Bowel: Stomach: Normal. Small Bowel: Normal in caliber with normal wall thickness. Large Bowel: Normal in caliber with normal wall thickness. Appendix: Normal. Bladder: Under distended. A calculus layering dependently in the bladder to the left of midline measures 5 mm. Ureters: Mild left ureteral distention and periureteric inflammation. No intraluminal calculi. Left ureter is normal. Prostate gland and seminal vesicles are normal. Peritoneum/retroperitoneum: No free fluid or fluid collection. Bones: Moderate degenerative changes throughout the thoracolumbar spine. No compression fracture or listhesis. No focal osseous lesions. Soft tissues: Unremarkable.. IMPRESSION: 1. 5 mm intraluminal calculus within the urinary bladder, mild right ureteral dilatation and periureteric inflammation suggestive of recently passed stone. 2. Bilateral intrarenal calculi as described above. 3. Bilateral renal cysts, some of which contain hemorrhage/protein. A cystic mass in the lower pole of the right kidney has a rim of peripheral increased attenuation. Recommend further characterization with CT or MRI dedicated to the kidneys on an outpatient basis. 4. Steatosis. 5. No evidence for bowel obstruction or inflammation. Normal appendix. Signed by: Dr. Santosh Whitney MD on 08/16/2019 8:14 PM
[2019-08-16 22:10] LABS: BILIRUBIN,URINE NEGATIVE (NEGATIVE); CLARITY,URINE HAZY (CLEAR); COLOR,URINE YELLOW (YELLOW); KETONES,URINE 2+ (NEGATIVE); LEUKOCYTE ESTERASE ,URINE NEGATIVE (NEGATIVE); NITRITE,URINE NEGATIVE (NEGATIVE); PROTEIN,URINE DIPSTICK NEGATIVE (NEGATIVE); URINE UROBILINOGEN 0.2 mg/dL (0.2 - 1)
[2019-08-16 22:24] LABS: RBC,URINE 21-50 /HPF (0-5)
[2019-08-16 22:25] LABS: BACTERIA,URINE RARE /HPF; EPITHELIAL CELLS,URINE FEW /LPF
[2019-08-16 22:54] VITALS: BP 138/89
== END 2019-08-16 23:02 | disposition home or self-care (01) ==
LOC: ER 18:39
DX: M54.5 Low back pain (principal); R30.0 Dysuria; R31.9 Hematuria, unspecified; N20.1 Calculus of ureter
CPT/HCPCS: 74176; 81001; 99283; J1885; Q0162

== ENCOUNTER → 2019-09-18 | Outpatient (CLI) | payer BC ==
[~2019-09-18] MED LIST changes: +IOPAMIDOL 370 MG/ML 200 ML INFUS..BTL INJ ONE; +SODIUM CHLORIDE 0.9% 50ML 50 ML ONE
[2019-09-18 16:07] LABS: BLOOD UREA NITROGEN 17 mg/dL (7-26); BUN/CREATININE RATIO 21 (6-25); CREATININE, SERUM 0.82 mg/dL (0.72-1.25); EST GLOMERULAR FILTRATION RATE > 60 ML/MIN (60-)
--- NOTE | 2019-09-19 14:38 | Diagnostic Imaging Report ---
EXAM: CT Abdomen and Pelvis WITHOUT and WITH intravenous contrast - Renal mass protocol INDICATION: Renal mass, renal malignancy COMPARISON: CT abdomen/pelvis 08/16/2019 TECHNIQUE: Abdomen and pelvis were scanned utilizing a multidetector helical scanner from the lung base to the pubic symphysis before and after administration of IV contrast. Coronal and sagittal reformations were obtained. Renal mass protocol was used. Scan was performed prior to contrast administration and during portal venous phase. IV CONTRAST: 100 mL of Isovue 370 ORAL CONTRAST: None COMPLICATIONS: None RADIATION DOSE: Total DLP: 2985 mGy*cm Dose modulation, iterative reconstruction, and/or weight based adjustment of the mA/kV was utilized to reduce the radiation dose to as low as reasonably achievable. FINDINGS: LOWER THORAX: Normal. HEPATOBILIARY: Mild diffuse hepatic steatosis. No focal liver lesion. No biliary ductal dilation. Unremarkable gallbladder. SPLEEN: No splenomegaly. PANCREAS: No focal masses or ductal dilatation. ADRENALS: No adrenal nodules. KIDNEYS/URETERS: Again seen are multiple renal cysts measuring up to 6.6 cm at the right lower pole and up to 3.1 cm at the left lower pole. These lesions are of varying attenuation with several containing hyperdense contents on the left. However, none of these lesions demonstrate postcontrast enhancement on arterial or delayed phase images and likely represent hyperdense cysts rather than neoplasm. No hydronephrosis or hydroureter. Nonobstructive renal calculi measure up to 5 mm at the right lower pole and 3 mm at the left lower pole. Excretory phase images demonstrate opacification of nearly the entire course of both ureters. No filling defect to suggest urothelial mass lesion. PELVIC ORGANS/BLADDER: Unremarkable. PERITONEUM / RETROPERITONEUM: No free air or fluid. LYMPH NODES: No lymphadenopathy. VESSELS: Mild scattered atherosclerotic calcifications of the nonaneurysmal abdominal aorta and major branches. GI TRACT: No abnormal bowel thickening. No bowel obstruction. BONES AND SOFT TISSUES: No acute osseous injury. No suspicious lytic or blastic lesions. Multilevel degenerative changes of the visualized spine. IMPRESSION: Bilateral renal cysts of varying attenuation, some of which contain hyperdense contents. None of the lesions demonstrate postcontrast enhancement and are unlikely to represent neoplasm. Nonobstructing right and left lower pole renal calculi. Mild diffuse hepatic steatosis. Signed by: Bobbi Johnson MD on 09/19/2019 2:35 PM
== END ==
LOC: CT 15:03
PROVIDERS: ATTEND Urology
DX: D41.01 Neoplasm of uncertain behavior of right kidney (principal)
CPT/HCPCS: 36415; 74178; 82565; 84520; Q9967

== ENCOUNTER → 2020-06-12 | Outpatient (CLI) | payer BC ==
[~2020-06-12] MED LIST changes: -IOPAMIDOL 370 MG/ML 200 ML INFUS..BTL INJ ONE; -SODIUM CHLORIDE 0.9% 50ML 50 ML ONE
== END ==
LOC: US 14:37
PROVIDERS: ATTEND Urology
DX: N18.9 Chronic kidney disease, unspecified (principal); N28.1 Cyst of kidney, acquired
CPT/HCPCS: 76770

== ENCOUNTER → 2020-10-06 | Outpatient (CLI) | payer BC | LOC: CT 15:31 | PROVIDERS: ATTEND Urology | DX: N20.0 Calculus of kidney (principal); N28.1 Cyst of kidney, acquired | CPT/HCPCS: 74176 ==

== ENCOUNTER → 2021-03-31 | Outpatient (CLI) | payer BC | LOC: CT 15:39 | PROVIDERS: ATTEND Urology | DX: N20.0 Calculus of kidney (principal) | CPT/HCPCS: 74176 ==

== ENCOUNTER 2021-12-11 08:27 | Inpatient (IN) | payer BC ==
[2021-12-09 15:53] LABS: BASOPHILS # (AUTO) 0.1 (0.0-0.1); BASOPHILS % 0.9 % (0.0-1.0); EOSINOPHILS # (AUTO) 0.4 (0.0-0.4); EOSINOPHILS % 5.5 % (0.0-6.0); HEMATOCRIT 36.8 % (38.2-49.6); HEMOGLOBIN 12.5 g/dL (14.0-18.0); LYMPHOCYTES # (AUTO) 1.9 (1.0-3.2); LYMPHOCYTES % 27.9 % (18.0-39.1); MEAN CORPUSCULAR HEMOGLOBIN 30.7 pg (28-32); MEAN CORPUSCULAR VOLUME 90.4 fL (81-99); MONOCYTES # (AUTO) 0.6 (0.2-0.8); MONOCYTES % 9.3 % (4.4-11.3); NEUTROPHILS # (AUTO) 3.8 (2.1-6.9); NEUTROPHILS % 56.1 % (38.7-80.0); PLATELET COUNT 219 x10e3/uL (140-360); RED BLOOD COUNT 4.07 x10e6/uL (4.3-5.7)
[2021-12-09 16:15] LABS: ANION GAP 20.1 mmol/L (8-16); CREATININE, SERUM 1.22 mg/dL (0.72-1.25); POTASSIUM 4.1 mmol/L (3.5-5.1)
[~2021-12-11 08:27] MED LIST changes: +ACTOS15 MG PO
[2021-12-11] MEDS ORDERED: GENTAMICIN 80MG/NS 100 ML 200 ML IV ONE (09:21)
[2021-12-11] MEDS ORDERED: CEFTRIAXONE 1 GM VIAL ONE (09:21)
[2021-12-11] MEDS ORDERED: B&O 60MG R/S 60 MG SUPP PR ONE (11:17)
[2021-12-11] MEDS ORDERED: IOPAMIDOL 300MG/ML 50ML INFUS..BTL IV ONE (11:17)
[2021-12-11] MEDS ORDERED: ACETAMINOPHEN/CODEINE 300MG - 30MG TAB PO PRN (13:15)
[2021-12-11] MEDS ORDERED: PHENAZOPYRIDINE HCL 100 MG TAB PO PRN (13:15)
[2021-12-11] MEDS ORDERED: MORPHINE SULFATE 1 MG/ML 30ML PCA IV PRN (13:15)
[2021-12-11] MEDS ORDERED: ONDANSETRON HCL INJ 2MG/ML 2ML 2 MG/ML VIAL IV PRN (13:15)
[2021-12-11] MEDS ORDERED: NALOXONE HCL INJ 0.4 MG/ML AMP IV PRN (13:15)
[2021-12-11] MEDS ORDERED: DIPHENHYDRAMINE HCL INJ 50 MG/ML VIAL IM PRN (13:15)
[2021-12-11 13:33] LABS: BASOPHILS # (AUTO) 0.1 (0.0-0.1); BASOPHILS % 0.6 % (0.0-1.0); EOSINOPHILS # (AUTO) 0.5 (0.0-0.4); EOSINOPHILS % 5.3 % (0.0-6.0); HEMATOCRIT 33.2 % (38.2-49.6); HEMOGLOBIN 10.7 g/dL (14.0-18.0); LYMPHOCYTES # (AUTO) 1.9 (1.0-3.2); LYMPHOCYTES % 19.7 % (18.0-39.1); MEAN CORPUSCULAR HEMOGLOBIN 30.1 pg (28-32); MEAN CORPUSCULAR HGB CONC 32.2 g/dL (31-35); MEAN CORPUSCULAR VOLUME 93.5 fL (81-99); MONOCYTES # (AUTO) 0.7 (0.2-0.8); MONOCYTES % 7.2 % (4.4-11.3); NEUTROPHILS # (AUTO) 6.4 (2.1-6.9); PLATELET COUNT 174 x10e3/uL (140-360); RED BLOOD COUNT 3.55 x10e6/uL (4.3-5.7); RED CELL DISTRIBUTION WIDTH 13.2 % (11.7-14.4)
[2021-12-11] MEDS ORDERED: MEPERIDINE HCL INJ 25 MG/ML VIAL ONE (13:42)
[2021-12-11 13:48] LABS: ANION GAP 15.6 mmol/L (8-16); CALCIUM 7.7 mg/dL (8.4-10.2); CREATININE, SERUM 1.18 mg/dL (0.72-1.25); POTASSIUM 4.6 mmol/L (3.5-5.1)
[2021-12-11] MEDS: SODIUM CHLORIDE 0.9% 1000ML 1,000 ML IV SCH (14:25)
[2021-12-11] MEDS ORDERED: MIDAZOLAM HCL 2 MG/2 ML VIAL ONE (14:38)
[2021-12-11] MEDS ORDERED: FENTANYL CITRATE/PF 100MCG/2 ML INJ ONE (14:38)
[2021-12-11 15:17] VITALS: BP 127/65
[2021-12-11 15:38] VITALS: BP 127/65
[2021-12-11 15:43] VITALS: BP 127/65
[2021-12-11] MEDS ORDERED: ACETAMINOPHEN 1000 MG/100 ML IV PRN (17:00)
[2021-12-11] MEDS: DOCUSATE SODIUM 100 MG CAP PO SCH (17:43)
[2021-12-11] MEDS ORDERED: ALPRAZOLAM 0.25 MG TAB PO SCH (17:45)
[2021-12-11] MEDS ORDERED: ALBUTEROL/IPRATROPIUM 3 ML NEB NEB PRN (18:45)
[2021-12-11] MEDS ORDERED: DEXAMETHASONE SOD PHOS INJ 4 MG/ML SDV ONE (19:07)
[2021-12-11] MEDS ORDERED: SEVOFLURANE INHAL SOLN 250 ML PEN BTL ONE (19:07)
[2021-12-11] MEDS ORDERED: ONDANSETRON HCL INJ 2MG/ML 2ML 2 MG/ML VIAL ONE (19:07)
[2021-12-11] MEDS ORDERED: METOCLOPRAMIDE HCL 10 MG/2ML VIAL ONE (19:07)
[2021-12-11] MEDS ORDERED: POVIDONE IODINE 0.05% 0.05 % ML PO ONE (19:07)
[2021-12-11] MEDS ORDERED: LIDOCAINE HCL 2% LOCAL INJ 5 ML SDV VIAL INJ ONE (19:07)
[2021-12-11] MEDS ORDERED: PROPOFOL IV EMULSION 10 MG/ML 20 ML VIAL ONE (19:07)
[2021-12-11 20:00] VITALS: BP 134/65
[2021-12-12] VITALS (8 sets, daily range): BP systolic 120–172; BP diastolic 54–66
[2021-12-12] MEDS: SIMVASTATIN 40 MG TAB PO SCH ×2 (00:35→21:38)
[2021-12-12] MEDS: QUINAPRIL HCL 20 MG TAB PO SCH ×3 (00:35→17:07)
[2021-12-12] MEDS: SODIUM CHLORIDE 0.9% 1000ML 1,000 ML IV SCH (01:06)
[2021-12-12 07:18] LABS: BASOPHILS % 0.2 % (0.0-1.0); EOSINOPHILS # (AUTO) 0.1 (0.0-0.4); EOSINOPHILS % 0.6 % (0.0-6.0); HEMATOCRIT 30.2 % (38.2-49.6); HEMOGLOBIN 10.2 g/dL (14.0-18.0); LYMPHOCYTES # (AUTO) 1.1 (1.0-3.2); LYMPHOCYTES % 12.8 % (18.0-39.1); MEAN CORPUSCULAR HEMOGLOBIN 30.3 pg (28-32); MEAN CORPUSCULAR HGB CONC 33.8 g/dL (31-35); MEAN CORPUSCULAR VOLUME 89.6 fL (81-99); MONOCYTES # (AUTO) 0.8 (0.2-0.8); MONOCYTES % 9.1 % (4.4-11.3); NEUTROPHILS # (AUTO) 6.8 (2.1-6.9); PLATELET COUNT 173 x10e3/uL (140-360); RED BLOOD COUNT 3.37 x10e6/uL (4.3-5.7); RED CELL DISTRIBUTION WIDTH 13.4 % (11.7-14.4)
[2021-12-12 07:43] LABS: ANION GAP 14.3 mmol/L (8-16); CALCIUM 7.5 mg/dL (8.4-10.2); CREATININE, SERUM 0.97 mg/dL (0.72-1.25); POTASSIUM 4.3 mmol/L (3.5-5.1)
[2021-12-12] MEDS: DOCUSATE SODIUM 100 MG CAP PO SCH ×2 (09:00→16:46)
[2021-12-12] MEDS: CEFTRIAXONE 2 GM in SODIUM CHLORIDE 0.9% 100 ML IV SCH (09:48)
[2021-12-12] MEDS ORDERED: B&O 60MG R/S 60 MG SUPP PR PRN (15:15)
[2021-12-12] MEDS ORDERED: Morphine 2mg Syringe 2 MG/ML SYR IV PRN (15:15)
[2021-12-12] MEDS: INSULIN LISPRO 100 UNIT/1 ML 3ML VIAL SQ SCH ×2 (16:30→21:00)
[2021-12-12] MEDS: FAMOTIDINE 20 MG TAB PO SCH (17:07)
[2021-12-12] MEDS: FUROSEMIDE 40 MG TAB PO SCH (17:07)
[2021-12-12] MEDS ORDERED: ASPIRIN 81 MG CHEW TAB PO SCH (21:00)
[2021-12-12] MEDS: ASPIRIN 325 MG TAB EC PO SCH (21:37)
[2021-12-12] MEDS: LORATADINE 10 MG TAB PO SCH (21:38)
[2021-12-12] MEDS: TAMSULOSIN HCL 0.4 MG CAP PO SCH (21:39)
[2021-12-13] VITALS (8 sets, daily range): BP systolic 96–139; BP diastolic 57–84
[2021-12-13 06:27] LABS: BASOPHILS % 0.5 % (0.0-1.0); EOSINOPHILS # (AUTO) 0.3 (0.0-0.4); EOSINOPHILS % 3.8 % (0.0-6.0); HEMATOCRIT 29.4 % (38.2-49.6); HEMOGLOBIN 10.2 g/dL (14.0-18.0); LYMPHOCYTES # (AUTO) 1.5 (1.0-3.2); LYMPHOCYTES % 22.7 % (18.0-39.1); MEAN CORPUSCULAR HEMOGLOBIN 30.7 pg (28-32); MEAN CORPUSCULAR HGB CONC 34.7 g/dL (31-35); MEAN CORPUSCULAR VOLUME 88.6 fL (81-99); MONOCYTES # (AUTO) 0.6 (0.2-0.8); MONOCYTES % 9.4 % (4.4-11.3); NEUTROPHILS # (AUTO) 4.1 (2.1-6.9); NEUTROPHILS % 63.1 % (38.7-80.0); PLATELET COUNT 137 x10e3/uL (140-360); RED BLOOD COUNT 3.32 x10e6/uL (4.3-5.7); RED CELL DISTRIBUTION WIDTH 13.4 % (11.7-14.4)
[2021-12-13 06:54] LABS: % IRON SATURATION 11 % (15-50); IRON 42 ug/dL (65-175); TOTAL IRON BINDING CAPACITY 377 ug/dL (261-478); TRANSFERRIN 269 mg/dL (174-364)
[2021-12-13 07:17] LABS: ANION GAP 15.6 mmol/L (8-16); CALCIUM 7.8 mg/dL (8.4-10.2); CREATININE, SERUM 0.85 mg/dL (0.72-1.25); POTASSIUM 3.6 mmol/L (3.5-5.1)
[2021-12-13] MEDS: INSULIN LISPRO 100 UNIT/1 ML 3ML VIAL SQ SCH ×4 (07:30→20:52)
[2021-12-13] MEDS: DOCUSATE SODIUM 100 MG CAP PO SCH ×3 (08:03→18:05)
[2021-12-13] MEDS: METOPROLOL SUCCINATE 50 MG TAB XL PO SCH (09:19)
[2021-12-13] MEDS: NIFEDIPINE CR 30 MG TAB PO SCH (09:20)
[2021-12-13] MEDS: FAMOTIDINE 20 MG TAB PO SCH (09:21)
[2021-12-13] MEDS: CEFTRIAXONE 2 GM in SODIUM CHLORIDE 0.9% 100 ML IV SCH (09:21)
[2021-12-13] MEDS: FUROSEMIDE 40 MG TAB PO SCH ×2 (09:21→17:29)
[2021-12-13] MEDS: SPIRONOLACTONE 25 MG TAB PO SCH (09:21)
[2021-12-13] MEDS: QUINAPRIL HCL 20 MG TAB PO SCH ×2 (09:21→17:29)
[2021-12-13] MEDS: PIOGLITAZONE HCL 15 MG TAB PO SCH (09:22)
[2021-12-13] MEDS: IRON SUCROSE 100 MG in SODIUM CHLORIDE 0.9% 100 ML IV SCH (17:28)
[2021-12-13] MEDS: METFORMIN HCL 500 MG TAB PO SCH (17:29)
[2021-12-13] MEDS: LORATADINE 10 MG TAB PO SCH (20:51)
[2021-12-13] MEDS: SIMVASTATIN 40 MG TAB PO SCH (20:51)
[2021-12-13] MEDS: ASPIRIN 325 MG TAB EC PO SCH (20:51)
[2021-12-13] MEDS: TAMSULOSIN HCL 0.4 MG CAP PO SCH (20:52)
[2021-12-14] VITALS (7 sets, daily range): BP systolic 123–142; BP diastolic 53–69
[2021-12-14 05:47] LABS: BASOPHILS # (AUTO) 0.1 (0.0-0.1); BASOPHILS % 0.8 % (0.0-1.0); EOSINOPHILS # (AUTO) 0.3 (0.0-0.4); EOSINOPHILS % 4.8 % (0.0-6.0); HEMATOCRIT 30.4 % (38.2-49.6); LYMPHOCYTES # (AUTO) 1.6 (1.0-3.2); LYMPHOCYTES % 26.1 % (18.0-39.1); MEAN CORPUSCULAR HEMOGLOBIN 30.2 pg (28-32); MEAN CORPUSCULAR HGB CONC 32.9 g/dL (31-35); MEAN CORPUSCULAR VOLUME 91.8 fL (81-99); MONOCYTES # (AUTO) 0.7 (0.2-0.8); MONOCYTES % 10.5 % (4.4-11.3); NEUTROPHILS # (AUTO) 3.6 (2.1-6.9); NEUTROPHILS % 57.5 % (38.7-80.0); PLATELET COUNT 153 x10e3/uL (140-360); RED BLOOD COUNT 3.31 x10e6/uL (4.3-5.7); RED CELL DISTRIBUTION WIDTH 13.3 % (11.7-14.4)
[2021-12-14 06:14] LABS: ANION GAP 14.3 mmol/L (8-16); CALCIUM 7.7 mg/dL (8.4-10.2); CREATININE, SERUM 0.8 mg/dL (0.72-1.25); POTASSIUM 3.3 mmol/L (3.5-5.1)
[2021-12-14] MEDS: INSULIN LISPRO 100 UNIT/1 ML 3ML VIAL SQ SCH ×4 (07:30→21:00)
[2021-12-14] MEDS: METFORMIN HCL 500 MG TAB PO SCH ×2 (08:00→17:00)
[2021-12-14] MEDS: PIOGLITAZONE HCL 15 MG TAB PO SCH (08:00)
[2021-12-14] MEDS: FUROSEMIDE 40 MG TAB PO SCH ×2 (09:00→17:00)
[2021-12-14] MEDS: DOCUSATE SODIUM 100 MG CAP PO SCH ×2 (09:00→17:00)
[2021-12-14] MEDS: SPIRONOLACTONE 25 MG TAB PO SCH (09:00)
[2021-12-14] MEDS: NIFEDIPINE CR 30 MG TAB PO SCH (09:00)
[2021-12-14] MEDS: METOPROLOL SUCCINATE 50 MG TAB XL PO SCH (09:00)
[2021-12-14] MEDS: CEFTRIAXONE 2 GM in SODIUM CHLORIDE 0.9% 100 ML IV SCH (09:00)
[2021-12-14] MEDS: QUINAPRIL HCL 20 MG TAB PO SCH ×2 (09:00→17:00)
[2021-12-14] MEDS ORDERED: POTASSIUM CHLORIDE 20 MEQ TAB CR PO NR (14:30)
[2021-12-14] MEDS: IRON SUCROSE 100 MG in SODIUM CHLORIDE 0.9% 100 ML IV SCH (15:32)
[2021-12-14] MEDS: LORATADINE 10 MG TAB PO SCH (21:27)
[2021-12-14] MEDS: SIMVASTATIN 40 MG TAB PO SCH (21:27)
[2021-12-14] MEDS: TAMSULOSIN HCL 0.4 MG CAP PO SCH (21:28)
[2021-12-14] MEDS: ASPIRIN 325 MG TAB EC PO SCH (21:28)
[2021-12-15] VITALS (7 sets, daily range): BP systolic 132–143; BP diastolic 56–69
[2021-12-15 05:46] LABS: BASOPHILS # (AUTO) 0.1 (0.0-0.1); BASOPHILS % 0.9 % (0.0-1.0); EOSINOPHILS # (AUTO) 0.4 (0.0-0.4); EOSINOPHILS % 6.4 % (0.0-6.0); HEMOGLOBIN 10.1 g/dL (14.0-18.0); LYMPHOCYTES # (AUTO) 1.8 (1.0-3.2); LYMPHOCYTES % 26.6 % (18.0-39.1); MEAN CORPUSCULAR HEMOGLOBIN 30.6 pg (28-32); MEAN CORPUSCULAR HGB CONC 34.8 g/dL (31-35); MEAN CORPUSCULAR VOLUME 87.9 fL (81-99); MONOCYTES # (AUTO) 0.7 (0.2-0.8); NEUTROPHILS # (AUTO) 3.7 (2.1-6.9); NEUTROPHILS % 55.7 % (38.7-80.0); PLATELET COUNT 160 x10e3/uL (140-360); RED CELL DISTRIBUTION WIDTH 13.2 % (11.7-14.4)
[2021-12-15 06:19] LABS: ANION GAP 16.2 mmol/L (8-16); CALCIUM 7.9 mg/dL (8.4-10.2); CREATININE, SERUM 0.82 mg/dL (0.72-1.25); POTASSIUM 3.2 mmol/L (3.5-5.1)
[2021-12-15] MEDS: INSULIN LISPRO 100 UNIT/1 ML 3ML VIAL SQ SCH ×3 (07:30→16:13)
[2021-12-15] MEDS ORDERED: ALLOPURINOL 300 MG TAB PO SCH (09:00)
[2021-12-15] MEDS: SPIRONOLACTONE 25 MG TAB PO SCH (09:23)
[2021-12-15] MEDS: DOCUSATE SODIUM 100 MG CAP PO SCH (09:23)
[2021-12-15] MEDS: METFORMIN HCL 500 MG TAB PO SCH (09:24)
[2021-12-15] MEDS: PIOGLITAZONE HCL 15 MG TAB PO SCH (09:24)
[2021-12-15] MEDS: QUINAPRIL HCL 20 MG TAB PO SCH (09:26)
[2021-12-15] MEDS: METOPROLOL SUCCINATE 50 MG TAB XL PO SCH (09:26)
[2021-12-15] MEDS: NIFEDIPINE CR 30 MG TAB PO SCH (09:27)
[2021-12-15] MEDS: FUROSEMIDE 40 MG TAB PO SCH (09:29)
[2021-12-15] MEDS ORDERED: ONDANSETRON HCL 4 MG ORAL DISINTEGRATING TAB SL PRN (09:30)
[2021-12-15] MEDS: CEFTRIAXONE 2 GM in SODIUM CHLORIDE 0.9% 100 ML IV SCH (09:30)
[2021-12-15] MEDS ORDERED: POTASSIUM CHLORIDE 20 MEQ TAB CR PO ONE ×2 (14:00→15:00)
[2021-12-15] MEDS ORDERED: ALLOPURINOL300 MG PO (14:36)
[2021-12-15] MEDS ORDERED: LEVOFLOXACIN250 MG PO (14:37)
== END 2021-12-15 16:36 | disposition home or self-care (01) | DRG 713 ==
LOC: OR 08:27 → PACU V 13:12 → MED/SURG2 14:04
PROVIDERS: ADMIT Internal Medicine; ATTEND Internal Medicine
PROC: BT141ZZ Fluoroscopy of Kidneys, Ureters and Bladder using Low Osmolar Contrast (ICD-10-PCS; 2021-12-11)
PROC: 0T788ZZ Dilation of Bilateral Ureters, Via Natural or Artificial Opening Endoscopic (ICD-10-PCS; 2021-12-11)
PROC: 0V508ZZ Destruction of Prostate, Via Natural or Artificial Opening Endoscopic (ICD-10-PCS; principal; 2021-12-11 11:47)
PROC: 0T7D8ZZ Dilation of Urethra, Via Natural or Artificial Opening Endoscopic (ICD-10-PCS; 2021-12-11 11:47)
DX: N40.1 Benign prostatic hyperplasia with lower urinary tract symptoms (principal); N13.8 Other obstructive and reflux uropathy; N39.0 Urinary tract infection, site not specified; R31.9 Hematuria, unspecified; N35.919 Unspecified urethral stricture, male, unspecified site; N20.0 Calculus of kidney; M10.9 Gout, unspecified; N41.9 Inflammatory disease of prostate, unspecified; Z20.822 Contact with and (suspected) exposure to COVID-19; D50.9 Iron deficiency anemia, unspecified; E66.01 Morbid (severe) obesity due to excess calories
CPT/HCPCS: 36415; 71045; 74420; 80048; 82948; 83540; 83735; 83970; 84466; 84550; 85025; 88304; 88305; 94799; 96361; J0696; J1100; J1580; J1756; J2001; J2175; J2250; J2270; J2405; J2765; J3010; J7030; J7050

== ENCOUNTER → 2023-10-28 | Outpatient (REF) | payer OTHER ==
[~2023-10-28] MED LIST changes: +ALLOPURINOL300 MG PO; +LEVOFLOXACIN250 MG PO
== END ==
LOC: CT 09:35
PROVIDERS: ATTEND Urology
DX: N20.0 Calculus of kidney (principal); K57.90 Diverticulosis of intestine, part unspecified, without perforation or abscess without bleeding; N28.1 Cyst of kidney, acquired
CPT/HCPCS: 74176

== ENCOUNTER → 2024-10-29 | Outpatient (REF) | payer OTHER | LOC: CT 15:50 | PROVIDERS: ATTEND Urology | DX: N20.0 Calculus of kidney (principal); Z87.442 Personal history of urinary calculi | CPT/HCPCS: 74176 ==